=== PATIENT | female | born 1945 ===

== ENCOUNTER 2021-06-04 14:49 | Outpatient (CLI) | payer OTHER | END 2021-06-04 14:57 | disposition home or self-care (01) | LOC: RAD 14:49 | PROVIDERS: ATTEND Internal Medicine | DX: G95.89 Other specified diseases of spinal cord (principal); M25.552 Pain in left hip; M25.551 Pain in right hip ==

== ENCOUNTER 2021-06-13 07:22 | Outpatient (CLI) | payer OTHER | END 2021-06-13 07:28 | disposition home or self-care (01) | LOC: RAD 07:22 | PROVIDERS: ATTEND Orthopaedic Surgery | DX: T84.022D Instability of internal right knee prosthesis, subsequent encounter (principal) ==

== ENCOUNTER 2023-02-10 09:45 | Outpatient (CLI) | payer OTHER | END 2023-02-10 09:47 | disposition home or self-care (01) | LOC: LAB 09:45 | PROVIDERS: ATTEND Orthopaedic Surgery | DX: I49.9 Cardiac arrhythmia, unspecified (principal); I10 Essential (primary) hypertension; D64.9 Anemia, unspecified; E88.9 Metabolic disorder, unspecified; D68.8 Other specified coagulation defects; N39.0 Urinary tract infection, site not specified; Z22.322 Carrier or suspected carrier of Methicillin resistant Staphylococcus aureus; E11.9 Type 2 diabetes mellitus without complications; M25.562 Pain in left knee; M25.462 Effusion, left knee; Z76.89 Persons encountering health services in other specified circumstances ==

== ENCOUNTER → 2023-02-26 | Outpatient (CLI) | payer OTHER ==
[~2023-02-26] VITALS: Ht 160 cm; Wt 108.9 kg
[~2023-02-26] MED LIST: CLONAZEPAM2 M1 PO; HORIZANT600 MG PO; LOSARTAN POTAS100 MG PO; METFORMIN HCL500 M3 PO; PANADOL EXTRA500 MG PO; SYNTHROID88 MCG PO
== END | disposition home or self-care (01) ==
LOC: LAB 06:00 → SURG 03-04 07:00 → EDSTATUS 03-04 12:30 → SURG 03-04 12:30
PROVIDERS: ATTEND Orthopaedic Surgery
DX: Z03.818 Encounter for observation for suspected exposure to other biological agents ruled out (principal)

== ENCOUNTER 2023-03-05 10:31 | Outpatient (CLI) | payer OTHER | END 2023-03-05 10:42 | disposition home or self-care (01) | LOC: TOM 10:31 | PROVIDERS: ATTEND Orthopaedic Surgery | DX: M19.212 Secondary osteoarthritis, left shoulder (principal) ==

== ENCOUNTER 2023-04-09 14:35 | Outpatient (CLI) | payer OTHER | END 2023-04-09 14:37 | disposition home or self-care (01) | LOC: LAB 14:35 | PROVIDERS: ATTEND Orthopaedic Surgery | DX: N39.0 Urinary tract infection, site not specified (principal) ==

== ENCOUNTER 2023-04-17 10:08 | Outpatient (CLI) | payer OTHER | END 2023-04-17 10:14 | disposition home or self-care (01) | LOC: RAD 10:08 | PROVIDERS: ATTEND Orthopaedic Surgery | DX: M75.42 Impingement syndrome of left shoulder (principal) ==